=== PATIENT | male | born 1930 | race Caucasian/White ===

== ENCOUNTER 2017-02-22 09:32 | Day surgery (SDC) | payer OTHER, BC ==
[2017-02-14 12:18] VITALS: BMI 24.3
[2017-02-22] MEDS: CYCLOPENTOLATE HCL 1% OPHTH SOLN 2 ML BOTTLE ONE ×5 (10:00→10:20)
[2017-02-22] MEDS: PHENYLEPHRINE 2.5% OPHTH SOLN 15 ML BOTTLE ONE ×5 (10:00→10:20)
[2017-02-22] MEDS: GENTAMICIN SULFATE 0.3% OPHTHALMIC (EYE DROPS) 5ML BOTTLE ONE ×5 (10:00→10:20)
[2017-02-22] MEDS: TROPICAMIDE 1% OPHTH SOLN 15 ML BOTTLE ONE ×5 (10:00→10:20)
[2017-02-22] MEDS: FLURBIPROFEN 0.03% OPHTH SOLN 2.5 ML BOTTLE ONE ×5 (10:00→10:20)
[2017-02-22] MEDS ORDERED: PROPOFOL 20 ML ONE ×2 (11:15)
[2017-02-22] MEDS ORDERED: ACETAMINOPHEN 325 MG TABLET (FP) PO PRN (11:18)
[2017-02-22] MEDS ORDERED: POVIDONE-IODINE 5% OPHTHALMIC PREP 30 ML SOLUTION ONE (11:29)
[2017-02-22] MEDS ORDERED: ACETAMINOPHEN 325 MG TABLET (FP) ONE (14:31)
[2017-02-22 15:16] VITALS: TEMP 98.2
[2017-02-22 15:18] VITALS: BP 123/71; PULSE 68
--- NOTE | 2017-02-23 07:00 | OP ---
DATE OF OPERATION: 02/22/2017 TITLE OF THE PROCEDURE: Planned extracapsular cataract extraction, phacoemulsification, and insertion of posterior chamber lens implant of the left eye, a difficult cataract extraction with pupillary miosis requiring iris hooks, and hypermature nucleus. SURGEON: Elmer Carter MD ABSTRACTER SURGEON: Elmer Carter MD ANESTHESIA: Local standby. General. ANESTHESIOLOGIST: Dr. Marin COMPLICATIONS: None. PREOPERATIVE DIAGNOSIS: Hypermature cataract, left eye, pupillary miosis, left eye. POSTOPERATIVE DIAGNOSIS: Hypermature cataract, left eye, pupillary miosis, left eye. FINDINGS AND PROCEDURES: After the patient was induced with general anesthesia, he was prepped and draped in the usual manner, exposed the left eye. The lid speculum was inserted, microscope brought in a position over the eye, Tegaderm strips had been placed prior to the lid speculum, and the left eye was exposed. Attention was focused at the temporal limbus where incisions were made with a 2.4 blade and a micro-sharp blade and also using the micro-sharp blade, 5 iris hooks were introduced to enlarge the pupillary opening from 3 mm to approximately 8 mm. This was done under Viscoat, which had been injected into the anterior chamber. An air bubble was placed, and then Trypan blue was placed, and then this was irrigated out, and the air bubble removed, and Viscoat placed into the anterior chamber, and then a capsulorrhexis was performed without complications using capsulorrhexis forceps. The phacoemulsification of this very hard hypermature nucleus was done using [id number] technique in approximately 2-1/2 minutes time, and this was followed by irrigation and aspiration of all cortical material in an intact posterior capsule and a red reflex, and then, Provisc was then injected in the posterior chamber to deepen the posterior capsule. The implant was inspected, found to be free of defects, debris, and flaws. It was folded, placed in a Provisc-filled cartridge and then in the injector, and then, it was injected into the eye such that it was in the posterior chamber, and it was rotated into the horizontal position with a Sinskey hook. The Provisc was aspirated out as was any residual cortex, and this was replaced with Miochol, Miostat, and BSS, and hydration of the incision wounds were then done. It should be noted that the Miochol and Miostat were injected after all the 5 iris hooks were removed from the eye and accounted for. Then, the Miochol and Miostat injections were done to constrict the pupil, and the incision wounds were hydrated, and the eye was now normotensive. At this point, the implant was fixated in the capsular bag, centrally located with the round pupil intact, posterior capsule, and a red reflux present. Topical Betoptic S and Maxitrol Ophthalmic Suspensions were placed as was Bacitracin Ophthalmic Ointment. The Tegaderm strips and lid speculum were removed from the lids. The lids were closed. Patient then awoke from general anesthesia, and a patch and shield were placed on the eye at the conclusion of the procedure. ELMER CARTER M.D. LUCIA/[id number]
== END 2017-02-22 15:20 | disposition home or self-care (01) ==
LOC: FASU 09:32
PROVIDERS: ATTEND Ophthalmology
PROC: 08RK3JZ Replacement of Left Lens with Synthetic Substitute, Percutaneous Approach (ICD-10-PCS; principal; 2017-02-22 12:09)
DX: H26.8 Other specified cataract (principal)
CPT/HCPCS: 94760